=== PATIENT | female | born 1990 | race Caucasian/White ===

== ENCOUNTER 2024-11-25 09:11 | Emergency (ER) | payer MEDICAID, SELFPAY ==
[2024-11-25 09:32] VITALS: BP 132/85; PULSE 81; RESP 18; TEMP 37.1; O2SAT 97; BMI 38.6
--- NOTE | 2024-11-25 09:32 | XR_ITS ---
Examination: Complete OB ultrasound, less than 14 weeks, transabdominal Date and time of exam: December 06, 2024 1036 hours INDICATIONS: Vaginal bleeding today Technique: Obstetrical ultrasound images less than 14 weeks performed via transabdominal imaging Findings: Uterus 8.8 cm Intrauterine gestational sac 0.6 cm corresponds to 5 weeks 2 days gestational age No pole, no cardiac motion Right ovary 3.6 cm arterial flow. Left ovary 3.3 cm arterial flow IMPRESSION: Empty intrauterine gestational sac corresponding to 5 weeks 2 days gestational age, no pole, no cardiac activity Recommend short-term follow-up pelvic sonography to confirm viability
--- NOTE | 2024-11-25 09:33 | EDNOTE_ITS ---
ED OB Contraction Preg RMI/HPI General Chief complaint: Vaginal Bleeding Stated complaint: 6-8 WKS VAGINAL BLEEDING TODAY Time Seen by Provider: 11/25/24 09:16 Source: patient Arrival date/time: 11/25/24 09:11 34-year-old female with a history of PCOS presents to the emergency room with a chief complaint of vaginal spotting x 1 day. Patient is currently 8 weeks . Mode of arrival: ambulatory Limitations: no limitations Related Data Allergies Allergy/AdvReac Type Severity Reaction Status Date / Time No Known Allergies Allergy Verified 11/25/24 09:14 Review of Systems Review of Systems Systems Reviewed: All systems reviewed, normal except as documented Constitutional Constitutional: Reports system reviewed and no additional complaints, except as documented, Denies fatigue, Denies fever(s), Denies headache(s) and Denies weakness Eyes Eyes: Reports system reviewed and no additional complaints, except as documented, Denies blurry vision and Denies change in vision ENT Ears, Nose, Mouth, and Throat: Reports system reviewed and no additional complaints, except as documented, Denies otalgia, Denies headache(s), Denies n trey congestion, Denies throat swelling and Denies vertigo Cardiovascular Cardiovascular: Reports system reviewed and no additional complaints, except as documented, Denies chest pain, Denies dyspnea and Denies dyspnea on exertion Respiratory Respiratory: Reports system reviewed and no additional complaints, except as documented, Denies chest congestion, Denies cough, Denies dyspnea, Denies dyspnea on exertion and Denies wheezing Gastrointestinal Gastrointestinal: Reports system reviewed and no additional complaints, except as documented, Denies abdominal pain, Denies cramping, Denies nausea and Denies vomiting Genitourinary Genitourinary: Reports system reviewed and no additional complaints, except as documented and Reports abnormal vaginal bleeding Musculoskeletal Musculoskeletal: Reports system reviewed and no additional complaints, except as documented and Denies back pain Integumentary/Breasts Skin/Breast: Reports system reviewed and no additional complaints, except as documented and Denies wounds Neurologic Neurologic: Reports system reviewed and no additional complaints, except as documented, Denies confusion, Denies headache(s), Denies lack of coordination, Denies vertigo and Denies weakness Psychiatric Psychiatric: Reports system reviewed and no additional complaints, except as documented, Denies anxiety, Denies confusion, Denies depression, Denies paranoia, Denies suicidal ideation and Denies tactile hallucinations Endocrine Endocrine: Reports system reviewed and no additional complaints, except as documented and Denies fatigue Hematologic/Lymphatic Hematologic/Lymphatic: Reports system reviewed and no additional complaints, except as documented and Denies lymphadenopathy Allergic/Immunologic Allergic/Immunologic: Reports system reviewed and no additional complaints, except as documented, Denies throat swelling, Denies urticaria and Denies wheezing Past Medical History Social History SMOKING STATUS: Never smoker ED Exam General Limitations: Present no limitations General appearance: Present alert and in no apparent distress Head Head exam: Present atraumatic Eye Eye exam: Present normal appearance, PERRL and EOMI ENT ENT exam: Present normal exam, normal oropharynx and mucous membranes moist Neck Neck exam: Present normal inspection, full ROM and trachea midline Chest Chest inspection: Present normal inspection and symmetric chest wall rise Respiratory Respiratory exam: Present normal lung sounds bilaterally Cardiovascular Cardiovascular exam: Present regular rate, normal rhythm and normal heart sounds Abdominal Exam Abdominal exam: Present soft and normal bowel sounds; Absent distention, tenderness, guarding, rebound or rigidity Extremities Exam Extremities exam: Present normal inspection and full ROM Back Exam Back exam: Present normal inspection and full ROM Neurological Exam Neurological exam: Present alert, oriented X3 and CN II-XII intact Psychiatric Psychiatric exam: Present normal affect and normal mood Skin Skin exam: Present warm, dry, intact and normal color Course Quality Measures none Orders Category Date Time Status US OB <= 14 weeks fetus Stat Exams 11/25/24 09:32 Completed ABO/RH Type Stat Lab 11/25/24 09:47 Completed Beta HCG,Quantitative Stat Lab 11/25/24 09:47 Completed CBC Stat Lab 11/25/24 09:47 Completed CMP [Comprehensive Metabolic Panel] Stat Lab 11/25/24 09:47 Completed UA [Urinalysis] Stat Lab 11/25/24 10:05 Completed Vital Signs Vital signs: Vital Signs Temperature 98.8 F 11/25/24 09:32 Pulse Rate 81 11/25/24 09:32 Respiratory Rate 18 11/25/24 09:32 Blood Pressure 132/85 H 11/25/24 09:32 Pulse Oximetry (%) 97 11/25/24 09:32 Oxygen Delivery Method Room Air 11/25/24 09:32 Vaginal Bleeding MDM Narrative MDM Narrative: 34-year-old female with a history of PCOS presents to the emergency room with a chief complaint of vaginal spotting x 1 day. Patient is currently 8 weeks . Patient is hemodynamically stable and in no apparent distress Physical examination shows a soft nontender abdomen bilaterally. The patient also states she is having some vaginal spotting when she wipes and using the restroom Ultrasound OB was completed and shows an empty intrauterine gestational sac corresponding to 5 weeks and 2 days and gestational age. There is no pole there is no cardiac activity hCG levels were at 5512. Radiologist recommends short-term follow-up the patient was educated to return to the emergency room in 3 days if she is unable to get in with her [employer]PER[employer] urinalysis CBC CMP were within normal limits Patient was discharged and educated to follow-up with primary care provider in the next 24 to 48 hours and return to the emergency room for any evidence of worsening signs or symptoms Patient data External records reviewed:: [facility] previous records Clinical information provided by:: patient Social determinants that could affect healthcare access:: none Patient has the following chronic illnesses:: No chronic illness How is presenting disease/condition affected by chronic disease/condition?: no chronic disease Evaluation data The following diagnostics were reviewed and interpreted by me:: lab results and radiology exam(s) Lab and/or radiology exams considered but not ordered:: Labs and radiology exams considered and ordered Interpretation Summary: OB ultrasound-Findings: Uterus 8.8 cm Intrauterine gestational sac 0.6 cm corresponds to 5 weeks 2 days gestational age No pole, no cardiac motion Right ovary 3.6 cm arterial flow. Left ovary 3.3 cm arterial flow IMPRESSION: Empty intrauterine gestational sac corresponding to 5 weeks 2 days gestational age, no pole, no cardiac activity Recommend short-term follow-up pelvic sonography to confirm viability Medications / Prescriptions Medications or Prescriptions considered but not ordered:: No medication given Medication administrations:: No medication given Consultations Consultation(s) initiated? (list below): No Diagnosis Vaginal Bleeding Differential Diagnosis: missed , threatened , dysfunctional uterine bleeding, incomplete , ectopic without intrauterine and vaginal bleeding Most likely diagnosis given after review of the tests above:: Vaginal bleeding Admission Indicated Admission indicated?: not indicated Admission Request Was there a request for admission?: No Disposition Plan Disposition Plan: Discharge Discharge Attestation Discharge Attestation: The patient and all family members were given an opportunity to ask questions and understood the discharge instructions. Discharge instructions specifically effects, indications for sooner follow up or return to the emergency department, and the expected course of current diagnosis. Patient condition: Stable Discharge Plan Plan Patient Disposition: HOME (Self Care) Discharge Disposition comment: Stable Prescriptions/Referrals Referrals: No Primary/Family,Physician [Primary Care Provider] - In 1 week Problem List Clinical Impression: Vaginal bleeding Patient/Caregiver Discharge Instructions Education Materials: ED Dysfunctional Uterine Bleeding Additional Instructions: Please follow-up with your [employer] BEAM TR[employer] OPERATOR in the next 24 to 48 hours Your ultrasound at this time shows an empty gestational sac. You are currently 5 weeks and 2 days and there is no pole with no cardiac activity. You are early in your and at this time heart radiologist recommends short-term follow-up. Please return or follow-up with your L[employer]ER BEAM TRIM OPERATOR in 72 hours for repeat blood work and repeat ultrasound. For any evidence of worsening signs or symptoms return to the emergency room immediately Print Language: Bahraini Stand Alone Forms: Eveline Award Info., Patient Portal Info Letter PA/BOG CUTTER Supervising Physician CASA/BOG CUTTER Supervising Physician: Dr. Barrera
[2024-11-25 10:02] LABS: Basophils # (Auto) 0.0 Thou/mm3 (0.0-0.2); Basophils % (Auto) 1 % (0-2.5); Eosinophils # (Auto) 0.2 Thou/mm3 (0.0-0.5); Eosinophils % (Auto) 3 % (0-10); Hematocrit 39.3 % (36.0-46.0); Hemoglobin 14.3 g/dL (12.0-16.0); Immature Granulocytes Auto 0.03 Thou/mm3 (0.00-0.00); Lymphocytes # (Auto) 3.8 Thou/mm3 (1.0-4.8); Lymphocytes % (Auto) 46 % (10-50); Mean Corpuscular HGB Conc 36.4 g/dl (31.0-37.0); Mean Corpuscular Hemoglobin 32.0 pg (25.0-35.0); Mean Corpuscular Volume 88 fL (80-100); Monocytes # (Auto) 0.5 Thou/mm3 (0.0-0.8); Monocytes % (Auto) 6 % (0-12); Neutrophils # (Auto) 3.6 Thou/mm3 (1.8-7.7); Neutrophils % (Auto) 44 % (37-80); Nucleated Red Blood Cell # 0.00 Thou/mm3 (0.00-0.00); Nucleated Red Blood Cell % 0 /100 WBC (0); Platelet Count 229 Thou/mm3 (140-440); RDW Standard Deviation 40.0 fL (36.4-46.3); Red Blood Count 4.47 Miln/mm3 (4.00-5.20); White Blood Count 8.1 Thou/mm3 (3.6-11.0)
[2024-11-25 10:15] LABS: Collection Type, Urine Clean Catch
[2024-11-25 10:36] LABS: Bilirubin,Urine Negative (Negative); Blood,Urine 3+ (Negative); Color,Urine Yellow (Lt Yel-Yel); Glucose, Urine Negative (Negative); Ketones,Urine Negative (Negative); Leukocyte Esterase,Urine Positive (Negative); Nitrite,Urine Negative (Negative); PH,Urine 6.0 (5.0-7.0); Protein,Urine Trace (Neg - Trace); RBC,Urine 6 /hpf (0-3); Specific Gravity,Urine 1.027 (1.001-1.035); Squamous Epithelial Cell,Urine 11 /hpf (0-5); Urobilinogen,Urine Negative mg/dL (0.0-1.0); WBC,Urine 9 /hpf (0-5)
[2024-11-25 10:36] LABS: Alanine Aminotransferase 17 U/L (10-49); Albumin, Serum 4.1 gm/dL (3.5-5.0); Albumin/Globulin Ratio 1.5 (1.2-2.2); Alkaline Phosphatase 56 U/L (46-116); Anion Gap 9 (7-16); Aspartate Amino Transferase 21 U/L (0-34); BUN/Creatinine Ratio 8 Ratio (12-20); Bilirubin,Total 0.5 mg/dL (0.3-1.2); Blood Urea Nitrogen 6 mg/dL (9-23); Calcium 9.7 mg/dL (8.3-10.6); Calcium (Corrected) 9.7 mg/dL (8.5-10.1); Carbon Dioxide 24.8 mMol/L (20.0-31.0); Chloride 107 mMol/L (98-107); Creatinine (Component) 0.8 mg/dL (0.6-1.3); Estimated Creatinine Clearance 115.2 mL/min (>60); Globulin 2.8 gm/dL (2.3-3.5); Glucose 79 mg/dL (74-106); Osmolality,Calculated 277 (275-295); Potassium 4.2 mMol/L (3.4-5.1); Sodium 141 mMol/L (136-145); Total Protein 6.9 gm/dL (5.7-8.2); eGFR > 60 See Note
[2024-11-25 10:53] LABS: Beta HCG,Quantitative 5512 mIU/mL (<5.0)
[2024-11-25 11:05] LABS: Clarity,Urine Hazy (Clear/Hazy)
== END 2024-11-25 12:00 | disposition home or self-care (01) ==
PROVIDERS: Nurse Practitioner Family; Emergency Provider Family Medicine
DX: O20.9 Hemorrhage in early pregnancy, unspecified (principal); Z3A.08 8 weeks gestation of pregnancy
CPT/HCPCS: 36415; 76801; 80053; 81001; 84702; 85025; 86900; 86901; 99283

== ENCOUNTER 2024-11-28 09:06 | Emergency (ER) | payer MEDICAID, SELFPAY ==
[2024-11-28 09:14] VITALS: BP 152/85; PULSE 74; RESP 18; TEMP 36.6; O2SAT 98
--- NOTE | 2024-11-28 09:28 | EDNOTE_ITS ---
ED OB Contraction Preg RMI/HPI General Chief complaint: General Adult/Misc Complain Stated complaint: REPEAT HCG & VAGINAL ULTRASOUND Time Seen by Provider: 11/28/24 09:12 Source: patient Arrival date/time: 11/28/24 09:06 34-year-old female with a history of PCOS presents to the emergency room for repeat blood work and ultrasound after an abnormal OB ultrasound done 3 days ago. Mode of arrival: ambulatory Limitations: no limitations Related Data Allergies Allergy/AdvReac Type Severity Reaction Status Date / Time No Known Allergies Allergy Verified 11/28/24 09:11 ED Exam General Limitations: Present no limitations Course Quality Measures none Orders Category Date Time Status US OB transvaginal Stat Exams 11/28/24 09:28 Completed ABO/RH Type Stat Lab 11/28/24 10:02 Completed Beta HCG,Quantitative Stat Lab 11/28/24 10:02 Completed CBC Stat Lab 11/28/24 10:02 Completed CMP [Comprehensive Metabolic Panel] Stat Lab 11/28/24 10:02 Completed UA [Urinalysis] Stat Lab 11/28/24 09:45 Completed Vital Signs Vital signs: Vital Signs Temperature 97.9 F 11/28/24 09:14 Pulse Rate 74 11/28/24 09:14 Respiratory Rate 18 11/28/24 09:14 Blood Pressure 152/85 H 11/28/24 09:14 Pulse Oximetry (%) 98 11/28/24 09:14 Oxygen Delivery Method Room Air 11/28/24 09:14 OB/Uterine Contractions MDM Narrative MDM Narrative:: 34-year-old female with a history of PCOS presents to the emergency room for repeat blood work and ultrasound after an abnormal OB ultrasound done 3 days ago. Patient is hemodynamically stable and in no apparent distress Patient states she is no longer having any vaginal bleeding or pelvic pain. Patient was seen here 3 days ago and an ultrasound was completed which showed an empty intrauterine gestational sac. And her hCG levels were at 5512 Today the patient had a repeat ultrasound and there is still an empty intrauterine gestational sac but the patient is still currently 5 weeks and 5 days. Her hCG levels did increase to 11,000 Patient was educated to follow-up with her [employer] Patient was discharged and educated to follow-up with primary care provider in the next 24 to 48 hours and return to the emergency room for any evidence of worsening signs or symptoms Patient data External records reviewed:: [facility] previous records Clinical information provided by:: patient Social determinants that could affect healthcare access:: none Patient has the following chronic illnesses:: No chronic illness How is presenting disease/condition affected by chronic disease/condition?: no chronic disease Evaluation data The following diagnostics were reviewed and interpreted by me:: lab results and radiology exam(s) Lab and/or radiology exams considered but not ordered:: Labs and radiology exams considered and ordered Interpretation Summary: Ultrasound OB-FINDINGS: Uterus 9.2 cm intrauterine gestational sac 1.0 cm corresponds to 5 weeks 5 days gestational age. No pole, no cardiac activity Right ovary 3.3 cm arterial flow 13 mm cyst Left ovary 3.6 cm arterial flow IMPRESSION: Again noted empty intrauterine gestational sac 5 weeks 5 days gestational age, suspicious for embryonic demise Suggest continued short-term follow-up pelvic sonography Medications / Prescriptions Medications or Prescriptions considered but not ordered:: No medication given Medication administrations:: No medication given Consultations Consultation(s) initiated? (list below): No Diagnosis OB Contractions Differential Diagnosis: other (Vaginal bleeding/threatened /pelvic pain) Most likely diagnosis given after review of the tests above:: Vaginal bleeding Admission Indicated Admission indicated?: not indicated Explain why admission is indicated or not indicated:: No chronic illness Admission Request Was there a request for admission?: No Disposition Plan Disposition Plan: Discharge Discharge Attestation Discharge Attestation: The patient and all family members were given an opportunity to ask questions and understood the discharge instructions. Discharge instructions specifically effects, indications for sooner follow up or return to the emergency department, and the expected course of current diagnosis. Patient condition: Stable Discharge Plan Plan Patient Disposition: HOME (Self Care) Discharge Disposition comment: Stable Prescriptions/Referrals Referrals: Jose Mendieta MD [Primary Care Provider] - In 1 week Problem List Clinical Impression: Vaginal bleeding Patient/Caregiver Discharge Instructions Education Materials: Understanding Uterine Bleeding Additional Instructions: Please follow-up with your [employer] in the next 24 to 48 hours Your repeat ultrasound today still did not show an intrauterine gestation and there is no cardiac activity. Your hCG levels are doubling. Please follow-up with your [employer] if you are unable to see your [employer] please return in 3 days for repeat blood work and ultrasound For any evidence of worsening signs or symptoms return to the emergency room immediately Print Language: Tajik Stand Alone Forms: Eveline Award Info., Work/School Release, Patient Portal Info Letter PA/REGISTERED OCCUPATIONAL THERAPIST Supervising Physician PA/REGISTERED OCCUPATIONAL THERAPIST Supervising Physician: Dr. Guerra
--- NOTE | 2024-11-28 09:28 | XR_ITS ---
Examination: OB Transvaginal ultrasound of the pelvis, complete Technique: Transvaginal sonographic images pelvis performed using nance scale imaging Exam date and time: November 28, 2024 1017 hours INDICATIONS: Vaginal bleeding cramping beginning 3 days ago and 20 intrauterine gestational sac 5 weeks 2 days on ultrasound November 25, 2024. FINDINGS: Uterus 9.2 cm intrauterine gestational sac 1.0 cm corresponds to 5 weeks 5 days gestational age. No pole, no cardiac activity Right ovary 3.3 cm arterial flow 13 mm cyst Left ovary 3.6 cm arterial flow IMPRESSION: Again noted empty intrauterine gestational sac 5 weeks 5 days gestational age, suspicious for embryonic demise Suggest continued short-term follow-up pelvic sonography
[2024-11-28 10:05] LABS: Collection Type, Urine Clean Catch
[2024-11-28 10:17] LABS: Basophils # (Auto) 0.1 Thou/mm3 (0.0-0.2); Basophils % (Auto) 1 % (0-2.5); Eosinophils # (Auto) 0.2 Thou/mm3 (0.0-0.5); Eosinophils % (Auto) 2 % (0-10); Hematocrit 38.9 % (36.0-46.0); Hemoglobin 13.7 g/dL (12.0-16.0); Immature Granulocytes Auto 0.03 Thou/mm3 (0.00-0.00); Lymphocytes # (Auto) 3.2 Thou/mm3 (1.0-4.8); Lymphocytes % (Auto) 43 % (10-50); Mean Corpuscular HGB Conc 35.2 g/dl (31.0-37.0); Mean Corpuscular Hemoglobin 30.9 pg (25.0-35.0); Mean Corpuscular Volume 88 fL (80-100); Monocytes # (Auto) 0.5 Thou/mm3 (0.0-0.8); Monocytes % (Auto) 7 % (0-12); Neutrophils # (Auto) 3.4 Thou/mm3 (1.8-7.7); Neutrophils % (Auto) 47 % (37-80); Nucleated Red Blood Cell # 0.00 Thou/mm3 (0.00-0.00); Nucleated Red Blood Cell % 0 /100 WBC (0); Platelet Count 217 Thou/mm3 (140-440); RDW Standard Deviation 40.4 fL (36.4-46.3); Red Blood Count 4.44 Miln/mm3 (4.00-5.20); White Blood Count 7.3 Thou/mm3 (3.6-11.0)
[2024-11-28 10:54] LABS: Alanine Aminotransferase 16 U/L (10-49); Albumin, Serum 3.9 gm/dL (3.5-5.0); Albumin/Globulin Ratio 1.5 (1.2-2.2); Alkaline Phosphatase 57 U/L (46-116); Anion Gap 9 (7-16); Aspartate Amino Transferase 22 U/L (0-34); BUN/Creatinine Ratio 9 Ratio (12-20); Bilirubin,Total 0.5 mg/dL (0.3-1.2); Blood Urea Nitrogen 6 mg/dL (9-23); Calcium 9.0 mg/dL (8.3-10.6); Calcium (Corrected) 9.1 mg/dL (8.5-10.1); Carbon Dioxide 24.5 mMol/L (20.0-31.0); Chloride 108 mMol/L (98-107); Creatinine (Component) 0.7 mg/dL (0.6-1.3); Estimated Creatinine Clearance 132.6 mL/min (>60); Globulin 2.6 gm/dL (2.3-3.5); Glucose 99 mg/dL (74-106); Osmolality,Calculated 278 (275-295); Potassium 4.1 mMol/L (3.4-5.1); Sodium 141 mMol/L (136-145); Total Protein 6.5 gm/dL (5.7-8.2); eGFR > 60 See Note
[2024-11-28 11:01] LABS: Bilirubin,Urine Negative (Negative); Blood,Urine 3+ (Negative); Clarity,Urine Clear (Clear/Hazy); Color,Urine Lt-Yellow (Lt Yel-Yel); Glucose, Urine Negative (Negative); Ketones,Urine Negative (Negative); Leukocyte Esterase,Urine Positive (Negative); Nitrite,Urine Negative (Negative); PH,Urine 6.5 (5.0-7.0); Protein,Urine Negative (Neg - Trace); RBC,Urine 11 /hpf (0-3); Specific Gravity,Urine 1.019 (1.001-1.035); Squamous Epithelial Cell,Urine 9 /hpf (0-5); Transitional Epi Cells,Urine < 1 /hpf (0-5); Urobilinogen,Urine Negative mg/dL (0.0-1.0); WBC,Urine 3 /hpf (0-5)
[2024-11-28 11:14] LABS: Beta HCG,Quantitative 11969 mIU/mL (<5.0)
== END 2024-11-28 11:50 | disposition home or self-care (01) ==
PROVIDERS: Emergency Provider Nurse Practitioner Family; PCP Internal Medicine
DX: O20.9 Hemorrhage in early pregnancy, unspecified (principal); Z3A.01 Less than 8 weeks gestation of pregnancy
CPT/HCPCS: 36415; 76817; 80053; 81001; 84702; 85025; 86900; 86901; 99283

== ENCOUNTER 2024-12-01 09:13 | Emergency (ER) | payer MEDICAID, SELFPAY ==
[2024-12-01 09:14] VITALS: BMI 38.6
--- NOTE | 2024-12-01 09:18 | XR_ITS ---
Examination: OB Transvaginal ultrasound of the pelvis, complete Technique: Transvaginal sonographic images pelvis performed using nance scale imaging Exam date and time: December 01, 2024 0931 hours INDICATIONS: Vaginal bleeding and cramping this week empty . Intrauterine gestational sac corresponding to 5 weeks 5 day gestational age on ultrasound 11/28/2024 Uterus 8.8 cm, pole 0.3 cm corresponds to 6 week 0 day gestational age. Cardiac motion 100 BPM. Right ovary 3.7 cm arterial flow 16mm cyst Left ovary 3.5 cm arterial flow IMPRESSION: Viable intrauterine gestation 6 weeks 0 days.
[2024-12-01 09:23] VITALS: BP 148/83; PULSE 77; RESP 17; TEMP 36.8; O2SAT 100
[2024-12-01 09:41] LABS: Basophils # (Auto) 0.0 Thou/mm3 (0.0-0.2); Basophils % (Auto) 0 % (0-2.5); Eosinophils # (Auto) 0.1 Thou/mm3 (0.0-0.5); Eosinophils % (Auto) 2 % (0-10); Hematocrit 40.2 % (36.0-46.0); Hemoglobin 14.2 g/dL (12.0-16.0); Immature Granulocytes Auto 0.02 Thou/mm3 (0.00-0.00); Lymphocytes # (Auto) 3.6 Thou/mm3 (1.0-4.8); Lymphocytes % (Auto) 44 % (10-50); Mean Corpuscular HGB Conc 35.3 g/dl (31.0-37.0); Mean Corpuscular Hemoglobin 31.1 pg (25.0-35.0); Mean Corpuscular Volume 88 fL (80-100); Monocytes # (Auto) 0.6 Thou/mm3 (0.0-0.8); Monocytes % (Auto) 7 % (0-12); Neutrophils # (Auto) 3.7 Thou/mm3 (1.8-7.7); Neutrophils % (Auto) 46 % (37-80); Nucleated Red Blood Cell # 0.00 Thou/mm3 (0.00-0.00); Nucleated Red Blood Cell % 0 /100 WBC (0); Platelet Count 217 Thou/mm3 (140-440); RDW Standard Deviation 41.2 fL (36.4-46.3); Red Blood Count 4.56 Miln/mm3 (4.00-5.20); White Blood Count 8.0 Thou/mm3 (3.6-11.0)
[2024-12-01 11:19] LABS: Beta HCG,Quantitative 23941 mIU/mL (<5.0)
--- NOTE | 2024-12-01 11:28 | PD.EDFMALE ---
ED Female Urogenital RME/HPI General Chief complaint: Recheck/Abnormal Lab/Rx Stated complaint: REQUESTS HCG LEVELS & US; 6WEEKS OB Time Seen by Provider: 12/01/24 09:17 Arrival date/time: 12/01/24 09:13 34-year-old female presents to the emergency department today for complaint of vaginal spotting patient requesting lab work and ultrasound to confirm viability Limitations: no limitations Related Data Allergies Allergy/AdvReac Type Severity Reaction Status Date / Time No Known Allergies Allergy Verified 12/01/24 09:16 Review of Systems Review of Systems Systems Reviewed: All systems reviewed, normal except as documented Constitutional Constitutional: Reports system reviewed and no additional complaints, except as documented, Denies fever(s) and Denies headache(s) Eyes Eyes: Reports system reviewed and no additional complaints, except as documented and Denies blurry vision ENT Ears, Nose, Mouth, and Throat: Reports system reviewed and no additional complaints, except as documented, Denies headache(s), Denies nasal congestion and Denies nasal discharge Cardiovascular Cardiovascular: Reports system reviewed and no additional complaints, except as documented, Denies chest pain and Denies dyspnea Respiratory Respiratory: Reports system reviewed and no additional complaints, except as documented, Denies chest congestion, Denies cough and Denies dyspnea Gastrointestinal Gastrointestinal: Reports system reviewed and no additional complaints, except as documented and Denies abdominal pain Genitourinary Genitourinary: Reports system reviewed and no additional complaints, except as documented and Reports abnormal vaginal bleeding Integumentary/Breasts Skin/Breast: Reports system reviewed and no additional complaints, except as documented and Denies rash Neurologic Neurologic: Reports system reviewed and no additional complaints, except as documented, Reports as per HPI and Denies headache(s) Past Medical History Social History SMOKING STATUS: Never smoker ED Exam General Limitations: Present no limitations General appearance: Present alert and in no apparent distress Head Head exam: Present atraumatic Eye Eye exam: Present normal appearance, PERRL and EOMI ENT ENT exam: Present normal exam, normal oropharynx and mucous membranes moist Neck Neck exam: Present normal inspection, full ROM and trachea midline Chest Chest inspection: Present normal inspection and symmetric chest wall rise Respiratory Respiratory exam: Present normal lung sounds bilaterally Cardiovascular Cardiovascular exam: Present regular rate, normal rhythm and normal heart sounds Abdominal Exam Abdominal exam: Present soft and normal bowel sounds Extremities Exam Extremities exam: Present normal inspection and full ROM Back Exam Back exam: Present normal inspection and full ROM Neurological Exam Neurological exam: Present alert, oriented X3 and CN II-XII intact Psychiatric Psychiatric exam: Present normal affect and normal mood Skin Skin exam: Present warm, dry, intact and normal color Course Quality Measures none Orders Category Date Time Status US OB transvaginal Stat Exams 12/01/24 09:18 Completed Beta HCG,Quantitative Stat Lab 12/01/24 09:30 Completed CBC Stat Lab 12/01/24 09:30 Completed Vital Signs Vital signs: Vital Signs Temperature 98.2 F 12/01/24 09:23 Pulse Rate 77 12/01/24 09:23 Respiratory Rate 17 12/01/24 09:23 Blood Pressure 148/83 H 12/01/24 09:23 Pulse Oximetry (%) 100 12/01/24 09:23 Oxygen Delivery Method Room Air 12/01/24 09:23 O2 saturation 100% room air wnl Urogenital - Female MDM Narrative MDM Narrative:: 34-year-old female presents to the emergency department today for complaint of vaginal spotting patient requesting lab work and ultrasound to confirm viability On exam patient well-appearing patient does not appear ill or toxic in no acute distress Lab work and imaging obtained Patient appears to have viable at this time Patient instructed to follow-up with [employer] [employer] for worsening symptoms for immediate Patient data External records reviewed:: [facility] previous records Clinical information provided by:: patient Social determinants that could affect healthcare access:: none Patient has the following chronic illnesses:: None How is presenting disease/condition affected by chronic disease/condition?: no chronic disease Evaluation data The following diagnostics were reviewed and interpreted by me:: lab results and radiology exam(s) Lab and/or radiology exams considered but not ordered:: Labs and radiology obtained Interpretation Summary: Reviewed by me Medications / Prescriptions Medications or Prescriptions considered but not ordered:: Given no meds Medication administrations:: Given no meds Consultations Consultation(s) initiated? (list below): No Diagnosis Urogenital Female Differential Diagnosis: other (Missed , threatened ) Most likely diagnosis given after review of the tests above:: Threatened Admission Indicated Admission indicated?: not indicated Admission Request Was there a request for admission?: No Disposition Plan Disposition Plan: Discharge Discharge Attestation Discharge Attestation: The patient and all family members were given an opportunity to ask questions and understood the discharge instructions. Discharge instructions specifically effects, indications for sooner follow up or return to the emergency department, and the expected course of current diagnosis. Patient condition: Stable Discharge Plan Plan Patient Disposition: HOME (Self Care) Discharge Disposition comment: Stable Prescriptions/Referrals Referrals: No Primary/Family,Physician [Primary Care Provider] - In 1 week Problem List Clinical Impression: Spotting in early , Viable Patient/Caregiver Discharge Instructions Education Materials: Bleeding During Early Additional Instructions: Please follow up with your primary care doctor in the next 24-48hrs for any worsening symptoms return here immediately Print Language: Yakut Stand Alone Forms: Eveline Award Info., Patient Portal Info Letter PA/SUPERVISOR FURNACE ROOM Supervising Physician PA/SUPERVISOR FURNACE ROOM Supervising Physician: Dr. pappas
== END 2024-12-01 11:36 | disposition home or self-care (01) ==
PROVIDERS: Nurse Practitioner Primary Care; Emergency Provider Family Medicine
DX: O26.859 Spotting complicating pregnancy, unspecified trimester (principal); Z3A.00 Weeks of gestation of pregnancy not specified
CPT/HCPCS: 36415; 76817; 84702; 85025; 99283